=== PATIENT | male | born 1950 | race Caucasian/White ===

== ENCOUNTER 2018-07-06 12:39 | Outpatient (CLI) | payer MEDICARE, OTHER ==
--- NOTE | 2018-07-06 13:48 | ULT ---
CAROTID ULTRASOUND WITH GRAYSCALE AND DOPPLER DUPLEX COLORFLOW IMAGING SPECTRAL ANALYSIS PERFORMED: CLINICAL INDICATION: TIA. FINDINGS: There is mild intimal thickening/plaque formation. PEAK SYSTOLIC VELOCITY (CM/S): Right CCA 128 Left CCA 125 Right ICA 87 Left ICA 84 There is antegrade directional flow within the visualized bilateral vertebral arteries. IMPRESSION: 1. No hemodynamically significant stenosis of the right internal carotid artery. 2. No hemodynamically significant stenosis of the left internal carotid artery. POS: [facility]
== END 2018-07-06 12:40 | disposition home or self-care (01) ==
LOC: BICULT 12:39
PROVIDERS: ATTEND Family Medicine
DX: G45.9 Transient cerebral ischemic attack, unspecified (principal)
CPT/HCPCS: 93880

== ENCOUNTER 2019-05-08 16:28 | Outpatient (CLI) | payer MEDICARE, OTHER ==
--- NOTE | 2019-05-08 17:33 | RAD ---
Radiograph left hip 2 views: HISTORY: 69-year-old male with left hip pain COMPARISON: None FINDINGS: No fracture or dislocation. Severe joint space narrowing at the superior aspect of the hip joint, whe re there is sclerosis and bony hypertrophy. Subcapital osteophytes. IMPRESSION: Moderate to severe osteoarthrosis of the left hip.
--- NOTE | 2019-05-08 17:36 | RAD ---
RADIOGRAPH LUMBAR SPINE 2 VIEWS: DATE: 05/08/2019 HISTORY: 69-year-old male with low back pain and left lumbar radiculopathy COMPARISON: None FINDINGS: L1 has tiny bilateral accessory ribs. Vertebral body heights are maintained. Grade 1 anterolisthesis of L4 on L5 due to bilateral high-grade facet DJD at that level. Grade 1 anterolisthesis of L5 on S1 due to possible pars reticularis defects and or high-grade facet DJD. Severe disc space narrowing L5-S1 without large endplate osteophytes. Mild vacuum disc phenomenon. Mild to moderate disc space narrowing at L3-4. IMPRESSION: 1. Grade 1 spondylolisthesis at L4-5 due to facet osteoarthrosis. 2. Grade 1 spondylolisthesis at L4-5 questionably due to spondylolysis. Noncontrast CT would be usefu l. 3. Degenerative disc disease, especially L5-S1.
== END 2019-05-08 16:29 | disposition home or self-care (01) ==
LOC: SCSRAD 16:28
PROVIDERS: ATTEND Internal Medicine Rheumatology
DX: M25.552 Pain in left hip (principal); M47.816 Spondylosis without myelopathy or radiculopathy, lumbar region; M43.16 Spondylolisthesis, lumbar region; M51.37 Other intervertebral disc degeneration, lumbosacral region; M16.12 Unilateral primary osteoarthritis, left hip
CPT/HCPCS: 72100

== ENCOUNTER 2019-08-23 13:35 | Outpatient (CLI) | payer MEDICARE, OTHER ==
[2019-08-23 14:12] LABS: Estimated GFR-MDRD - POC Greater than 90
--- NOTE | 2019-08-23 15:13 | MRI ---
Exam: Brain MRI with and without contrast HISTORY: Dizziness. Transient ischemic attack. COMPARISON: None FINDINGS: Gradient echo sequence: No hemorrhage Calvarium: Appropriate T1 marrow signal intensity Midline brain parenchyma: Unremarkable Cerebrum:No parenchymal mass, mass effect or midline shift. Brain volume is age appropriate. Del Toro-whi te matter differentiation is preserved. T2 and FLAIR white matter hyperintensities due to chronic small vessel ischemic change. Ventricles: No evidence of hydrocephalus. Sinuses and mastoid air cells: Mild mucosal thickening of the frontal sinuses, sphenoid sinuses and e thmoid air cells. Adequate mastoid air cell aeration. Diffusion: Central arterial flow is maintained. Absent restricted diffusion. Postcontrast images: No pathologic enhancement of the brain parenchyma. IMPRESSION: 1. Absent restricted diffusion. No acute infarct 2. No pathologic enhancement of the brain parenchyma.
== END 2019-08-23 13:36 | disposition home or self-care (01) ==
LOC: SCSMRI 13:35
PROVIDERS: ATTEND Family Medicine
DX: G45.9 Transient cerebral ischemic attack, unspecified (principal); R20.0 Anesthesia of skin; R42 Dizziness and giddiness; R29.810 Facial weakness
CPT/HCPCS: 70553; 82565

== ENCOUNTER 2019-09-21 05:27 | Outpatient (CLI) | payer MEDICARE, OTHER ==
[2019-09-21 16:40] LABS: #Eosinphils 0.1 thou/uL (0.0-0.7); #Lymphocytes 1.6 thou/uL (1.20-3.40); #Monocytes 0.8 thou/uL (0.11-0.59); #Neutrophils 9.3 thou/uL (1.40-6.50); %Basophils 0.2 % (0.0-1.0); %Eosinophils 0.7 % (0.0-10.0); %Lymphocytes 13.8 % (21.0-51.0); %Monocytes 6.9 % (0.0-10.0); %Neutrophils 78.4 % (42.0-75.0); Hemoglobin 14.6 g/dL (14.0-18.0); Mean Corpuscular HGB CONC 33.7 g/dL (32.0-36.0); Mean Corpuscular Hemoglobin 31.8 pg (27.0-31.0); Mean Corpuscular Volume 94.6 fL (78.0-98.0); Mean Platelet Volume 6.9 fL (7.4-10.4); Platelet Count 238 thou/uL (130-400); RBC Distribution Width 12.1 % (11.5-14.5); Red Blood Cell (RBC) Count 4.57 mill/uL (4.70-6.10); White Blood Cell (WBC) Count 11.9 thou/uL (4.8-10.8)
[2019-09-21 16:51] LABS: Anion Gap 12 mmol/L (10-20); BUN (Urea Nitrogen) 18 mg/dL (8.4-25.7); Calc. Creatinine Clearance 0 mL/min (70-130); Calcium 9.3 mg/dL (7.8-10.44); Carbon Dioxide 24 mmol/L (23-31); Chloride 99 mmol/L (98-107); Estimated GFR-MDRD Greater than 90; Glucose 102 mg/dL (83-110); Potassium 4.4 mmol/L (3.5-5.1); Sodium 131 mmol/L (136-145)
[2019-09-21 16:56] LABS: Prothrombin Time 13.2 sec (12.0-14.7)
[2019-09-21 17:01] LABS: Bacteria/HPF None Seen HPF (None Seen); Bilirubin Negative (Negative); Blood, Urine Negative (Negative); Clarity Clear (Clear); Glucose, Urine (Dipstick) Normal (Negative); Ketone, Urine Negative (Negative); Leukocyte Negative Leu/uL (Negative); Nitrite Negative (Negative); Protein, Urine (Dipstick) Negative (Neg-Trace); RBC/HPF 0-3 HPF (0-3); Specific Gravity, Urine 1.017 (1.002-1.036); Squamous Epithelial 0-3 HPF (0-3); Urobilinogen Normal mg/dL (Less than 2); WBC/HPF 0-3 HPF (0-3)
[2019-09-22 12:53] LABS: SARS-CoV-2 MS2 Positive; SARS-CoV-2 N Gene Negative; SARS-CoV-2 S Gene Negative; SARS-CoV-2 orf1ab Negative
== END 2019-09-21 05:28 | disposition home or self-care (01) ==
LOC: LABBT 05:27
PROVIDERS: ATTEND Orthopaedic Surgery
DX: Z01.812 Encounter for preprocedural laboratory examination (principal); Z11.59 Encounter for screening for other viral diseases; M16.12 Unilateral primary osteoarthritis, left hip
CPT/HCPCS: 80048; 81001; 85025; 85610; 87081; U0003; 87635

== ENCOUNTER 2019-09-21 13:15 | Inpatient (IN) | payer MEDICARE, OTHER ==
--- NOTE | 2019-09-21 09:06 | HP ---
PRESENT ILLNESS: The patient is a 69-year-old male with a greater than 1-year history of low back and left hip pain. It has become much worse over the past 6 months. His pain has now become disabling and is interfering with walking, getting dressed, and sleeping. He has had only partial relief with use of Celebrex and lifestyle adjustments. He had a previous injection in his back and hip by Dr. Snyder without relief. PAST MEDICAL HISTORY: The patient is otherwise in good health. He has had some migratory weakness suggestive of a possible TIA. MRI scan of the brain has been negative. Has no major medical problems. CURRENT MEDICATIONS: Include; 1. Pantoprazole. 2. Oxybutynin. 3. Tylenol. 4. Celebrex. ALLERGIES: HE HAS NO KNOWN ALLERGIES. FAMILY HISTORY: Otherwise unremarkable. SOCIAL HISTORY: Otherwise unremarkable. REVIEW OF SYSTEMS: Otherwise unremarkable. PHYSICAL EXAMINATION: GENERAL: This is a healthy male. HEENT: Unremarkable. NECK: Supple. CHEST: Clear. HEART: Regular rate and rhythm. ABDOMEN: Soft, nontender. RECTAL: Deferred. GENITAL: Deferred. BACK: Reveals no point tenderness. EXTREMITIES: Pertinent findings related to his left hip. His leg lengths were equal. There is tenderness in the anterior hip. There is a left antalgic gait. There is decreased range of motion of the left hip and groin pain with internal rotation. NEUROVASCULAR: Intact. Straight leg raising is negative. DIAGNOSTIC STUDIES: X-rays of the left hip reveal severe DJD with no joint space remaining. There are mild degenerative changes of the right hip. X-rays of the lumbar spine reveal mild degenerative changes and grade 1 spondylolisthesis at L5-S1. IMPRESSION: 1. Degenerative arthritis, left hip. 2. Degenerative joint disease of lumbar spine. PLAN: Left total hip replacement. The nature of the surgery, length of recovery, and potential complications such as infection, loss of motion, incomplete relief, leg-length discrepancy, thromboembolic phenomena, neurovascular injury, possible transfusion, and need for revision have been discussed in detail. Job ID: [id number]
[2019-09-25] MEDS ORDERED: Vancomycin 1 GM/200 ML BAG ONE (09:51)
[2019-09-25] MEDS ORDERED: Tranexamic Acid 1,000 MG/10 ML VIAL ONE ×2 (09:51→14:18)
[2019-09-25] MEDS ORDERED: Sodium Chloride 0.9% 100 ML ONE (09:51)
[2019-09-25] MEDS ORDERED: Midazolam HCl 2 mg/2 ml Vial ONE (10:28)
[2019-09-25] MEDS ORDERED: Fentanyl 100 MCG/2 ML VIAL ONE ×2 (10:29→11:39)
[2019-09-25] MEDS ORDERED: Ondansetron PF 4 MG/2 ML Vial IVP PRN ×2 (11:15→15:38)
[2019-09-25] MEDS ORDERED: Zolpidem Tartrate 5 MG TAB PO PRN ×2 (11:15→15:38)
[2019-09-25] MEDS ORDERED: Hydrocerin (Eucerin) Cream 120 gm Jar TOP PRN (11:15)
[2019-09-25] MEDS ORDERED: Promethazine HCl 25 MG/ML VIAL IM PRN (11:15)
[2019-09-25] MEDS ORDERED: diphenhydrAMINE 50 MG/ML VIAL IM PRN (11:15)
[2019-09-25] MEDS ORDERED: traMADol HCl 50 MG TAB PO PRN ×3 (11:15→15:38)
[2019-09-25] MEDS ORDERED: Promethazine HCl 25 MG SUPP PR PRN (11:15)
[2019-09-25] MEDS ORDERED: Bupivacaine 0.25% 10 ML VIAL EPIDURAL PRN (11:15)
[2019-09-25] MEDS ORDERED: Naloxone HCl 0.4 mg/ml Vial IVP PRN (11:15)
[2019-09-25] MEDS ORDERED: HYDROcodone/Acetaminophen 5/325 mg Tablet PO PRN ×2 (11:15)
[2019-09-25] MEDS ORDERED: Naloxone HCl 0.4 mg/ml Vial IV PRN (11:15)
[2019-09-25] MEDS ORDERED: diphenhydrAMINE 50 MG/ML VIAL IVP PRN (11:15)
[2019-09-25] MEDS ORDERED: Ropivacaine 0.2% HCl/PF 20 ML ONE (11:40)
[2019-09-25] MEDS ORDERED: Lidocaine 1.5% w/Epi 1:200K 30 ML VIAL (Epid Use) ONE (11:41)
[2019-09-25] MEDS ORDERED: PROPOFOL 200 MG/20 ML VIAL ONE (11:41)
[2019-09-25] MEDS ORDERED: EPHEDRINE 25 MG/5 ML SYRINGE ONE (11:41)
[2019-09-25] MEDS ORDERED: Dexamethasone 20 MG/5 ML VIAL ONE (11:41)
[2019-09-25] MEDS ORDERED: Glycopyrrolate 0.2 MG/ML 5 ML SYRINGE ONE (11:41)
[2019-09-25] MEDS ORDERED: Rocuronium Bromide 10 MG/ML (10ML VIAL) ONE (11:41)
[2019-09-25] MEDS ORDERED: Ondansetron PF 4 MG/2 ML Vial ONE (11:41)
[2019-09-25] MEDS ORDERED: Tranexamic Acid 1,000 MG in Sodium Chloride 0.9% 100 ML IVPB SCH ×2 (14:30→15:38)
[2019-09-25] MEDS ORDERED: Acetaminophen 325 MG TAB PO PRN (15:38)
[2019-09-25] MEDS ORDERED: diphenhydrAMINE 25 MG CAP PO PRN (15:38)
[2019-09-25] MEDS ORDERED: HYDROcodone/Acetaminophen 10/325 mg Tablet PO PRN ×2 (15:38)
[2019-09-25] MEDS ORDERED: Ketorolac Tromethamine 30 MG/ML VIAL IM SCH (15:38)
[2019-09-25] MEDS ORDERED: Promethazine HCl 25 MG/ML VIAL SLOW IVP PRN (15:38)
[2019-09-25] MEDS ORDERED: Fentanyl 100 MCG/2 ML VIAL SLOW IVP PRN ×2 (15:38)
--- NOTE | 2019-09-25 15:45 | RAD ---
EXAM: 2 views of the left hip HISTORY: Left hip arthroplasty COMPARISON: None FINDINGS: 2 views of the left hip shows the patient is status post left hip arthroplasty without scott hardware lucency or fracture. Air in the soft tissues is from recent surgery.. IMPRESSION: Status post left hip arthroplasty without evidence of complication.
--- NOTE | 2019-09-25 15:49 | OP ---
DATE OF PROCEDURE: 09/25/2019 This is Jacob Chapman PA-C dictating a report for Mario Amanda MD. PREOPERATIVE DIAGNOSIS: End-stage bicompartmental osteoarthritis, left hip. POSTOPERATIVE DIAGNOSIS: End-stage bicompartmental osteoarthritis, left hip. OPERATIVE PROCEDURE: Press-fit left total hip arthroplasty. MERCHANDISE PICKUP/RECEIVING ASSOCIATE: Jacob Chapman PA-C. ANESTHESIA: General via endotracheal tube augmented with indwelling epidural. COMPONENTS USED: [employer] Tritanium II press-fit 58 mm acetabular shell, 10-degree polyethylene fixed bearing insert, Accolade II size 7 press-fit hip stem, and a V40 ceramic femoral head, neutral neck length. FINDINGS: End-stage severe degenerative bicompartmental disease, [id number] arthrosis, periarticular osteophyte formation, large serous effusion, changes consistent with chronic degenerative bicompartmental osteoarthritis. DRAINS: None. SPECIMENS: None. COMPLICATIONS: None. COUNTS: Correct. ESTIMATED BLOOD LOSS: 150 mL. OUTPUT: 200 mL clear yellow urine. INPUT: 900 mL crystalloid. INDICATION FOR SURGERY: Zeb is a 69-year-old male, who has had progressive hip, groin, and thigh pain on the left and problems with standing and walking for the last 5 to 7 years. He has failed conservative management, elected to proceed with total hip arthroplasty as definitive treatment of his pain. PROCEDURE IN DETAIL: After informed consent was obtained in the preoperative holding area, the patient was taken to the operative suite where general anesthesia was induced. The patient was then positioned in the lateral decubitus position. The hip was then prepped and draped in usual sterile fashion. The patient received preoperative antibiotics. Prior to incision, time-out was called and all members of the surgical team agreed upon site, surgeon, and patient. After this, a longitudinal incision was made directly over the trochanter, noted by palpation extending 2 fingerbreadths above and below the trochanter. The deeper subcutaneous layer was undermined with Bovie electrocautery. The iliotibial band was encountered and incised sharply and the plane below this was developed bluntly. A Charnley retractor was placed to hold this opened. The lateral aspect of the trochanter and the abductor muscles were encountered and then reflected anteriorly off the trochanter using Bovie electrocautery. Once this was completed, the anterior capsule was then encountered and identified and copious capsulotomy was carried out, exposing the femoral neck and head. Dislocation maneuver was then performed and an in situ provisional neck cut was then made using the oscillating saw. Attention was then turned to acetabular preparation. Sequential reaming was carried out up to the appropriate diameter and a trial was then malleted into place with good firm resistance and no pullout. The permanent acetabular shell was then malleted squarely into place, as was the appropriate liner. Once completed, the wound was copiously irrigated and attention was then turned to femoral preparation. Flexion and external rotation were performed of the exposed thigh and femoral elevators were then placed at the proximal aspect of the wound. Canal finder was used to establish the length of the canal and sequential reaming was carried out, followed by broaching. Once the appropriate stability was established with the trial broaches with flexion, extension and rotational stability, we did trial with neutral and 2 mm offset incremental necks. Once the appropriate size was decided upon, with good stability noted with flexion, extension, internal and external rotation and shuck being negative, we removed the femoral trial broach and malletted into place the permanent prosthesis with good firm fit, which was also stable to rotation. Again, the hip felt very stable to flexion, extension, internal and external rotation. Leg lengths appeared near anatomic clinically and we were quite happy with prosthesis placement. Copious irrigation was then carried out through the entirety of the wound. Primary closure of the abductors was accomplished with interrupted #2 Vicryl [id number] stitches and the IT band was then closed with interrupted #2 Vicryl, oversewn with a #2 running barbed Quill stitch. Subcutaneous fascia was closed with running barbed Quill stitch and a subcuticular Monocryl barbed Quill stitch was used for skin closure and augmented with skin cement. A sterile dressing was applied. The procedure was terminated without any complication. All counts were correct. The patient was awakened in the operative suite and taken to the recovery room in stable condition. Job ID: [id number]
[2019-09-25] MEDS: Ketorolac Tromethamine 30 MG/ML VIAL IVP SCH ×3 (17:30→23:45)
[2019-09-25] MEDS: Sodium Chloride 0.9% 1,000 ML IV SCH (17:31)
[2019-09-25] MEDS ORDERED: Artificial Tear Sol 15 ML BOT EA EYE PRN (17:33)
[2019-09-25] MEDS ORDERED: CEFAZOLIN 2 GM in Premix Bag 1 BAG IVPB SCH (18:00)
[2019-09-25] MEDS: Aspirin 81 mg Enteric Coated Tablet PO SCH (20:29)
[2019-09-25] MEDS: CEFAZOLIN 2 GM in Premix Bag 1 BAG IVPB SCH (20:32)
[2019-09-25] MEDS: diphenhydrAMINE 25 MG CAP PO PRN (20:47)
[2019-09-25] MEDS ORDERED: Vancomycin 1 GM in Premix Bag 1 BAG IVPB SCH (21:00)
[2019-09-26] MEDS: Sodium Chloride 0.9% 1,000 ML IV SCH ×3 (04:15→23:19)
[2019-09-26] MEDS: Ketorolac Tromethamine 30 MG/ML VIAL IVP SCH ×4 (05:29→23:15)
[2019-09-26] MEDS: CEFAZOLIN 2 GM in Premix Bag 1 BAG IVPB SCH (05:29)
[2019-09-26] MEDS: fentaNYL Citrate/PF 500 MCG, Bupivacaine 10 ML in Sodium Chloride 0.9% 80 ML EPIDURAL SCH ×2 (06:00→20:51)
[2019-09-26] MEDS: diphenhydrAMINE 25 MG CAP PO PRN ×2 (06:05→18:15)
[2019-09-26 06:16] LABS: Hemoglobin 12.1 g/dL (14.0-18.0); Mean Corpuscular Hemoglobin 31.9 pg (27.0-31.0); Mean Corpuscular Volume 93.9 fL (78.0-98.0); Mean Platelet Volume 6.4 fL (7.4-10.4); Platelet Count 205 thou/uL (130-400); RBC Distribution Width 11.8 % (11.5-14.5); Red Blood Cell (RBC) Count 3.78 mill/uL (4.70-6.10)
[2019-09-26] MEDS: Oxybutynin 5 MG TAB PO SCH (08:24)
[2019-09-26] MEDS: Senokot S 8.6-50 MG TAB PO SCH ×2 (08:24→20:56)
[2019-09-26] MEDS: Ferrous Gluconate 324 MG TAB PO SCH ×2 (08:24→20:55)
[2019-09-26] MEDS: Aspirin 81 mg Enteric Coated Tablet PO SCH ×2 (08:24→20:56)
[2019-09-26] MEDS: Multivitamin W/ Minerals 1 TAB PO SCH (08:25)
[2019-09-26 11:29] VITALS: BMI 23.1
[2019-09-27] MEDS: Ketorolac Tromethamine 30 MG/ML VIAL IVP SCH (05:34)
[2019-09-27] MEDS: Multivitamin W/ Minerals 1 TAB PO SCH (08:02)
[2019-09-27] MEDS: Senokot S 8.6-50 MG TAB PO SCH (08:02)
[2019-09-27] MEDS: Aspirin 81 mg Enteric Coated Tablet PO SCH (08:03)
[2019-09-27] MEDS: Ferrous Gluconate 324 MG TAB PO SCH (08:03)
[2019-09-27] MEDS: Oxybutynin 5 MG TAB PO SCH (08:03)
[2019-09-27] MEDS: Sodium Chloride 0.9% 1,000 ML IV SCH (08:03)
[2019-09-27 12:17] VITALS: BP 147/70; TEMP 98.4
== END 2019-09-27 14:15 | disposition home or self-care (01) | DRG 470 ==
LOC: SURG A 09-25 09:26 → SJJU 09-25 15:58
PROVIDERS: ADMIT Orthopaedic Surgery; ATTEND Orthopaedic Surgery
PROC: 0SRB04A Replacement of Left Hip Joint with Ceramic on Polyethylene Synthetic Substitute, Uncemented, Open Approach (ICD-10-PCS; principal; 2019-09-25)
DX: M16.12 Unilateral primary osteoarthritis, left hip (principal); M51.36 Other intervertebral disc degeneration, lumbar region; J30.2 Other seasonal allergic rhinitis; Z79.899 Other long term (current) drug therapy
CPT/HCPCS: 36415; 85027; J0690; J1100; J1885; J2001; J2250; J2405; J2704; J2795; J3010; J3370; J3490; Q0163

== ENCOUNTER 2020-02-12 07:09 | Outpatient (CLI) | payer MEDICARE, OTHER ==
[2020-02-12 16:01] LABS: Anion Gap 13 mmol/L (10-20); BUN (Urea Nitrogen) 11 mg/dL (8.4-25.7); Calc. Creatinine Clearance 0 mL/min (70-130); Calcium 9.3 mg/dL (7.8-10.44); Carbon Dioxide 26 mmol/L (23-31); Chloride 101 mmol/L (98-107); Estimated GFR-MDRD 89; Glucose 100 mg/dL (83-110); Potassium 4.3 mmol/L (3.5-5.1); Sodium 136 mmol/L (136-145)
[2020-02-12 16:31] LABS: #Eosinphils 0.2 10x3/uL (0.0-0.5); #Monocytes 0.6 10x3/uL (0.0-1.1); #Neutrophils 5.6 10x3/uL (1.5-8.4); %Basophils 0.2 % (0.0-2.0); %Eosinophils 2.1 % (0.0-6.0); %Lymphocytes 20.2 % (18.0-47.0); %Monocytes 7.5 % (0.0-10.0); %Neutrophils 69.8 % (40.0-75.0); Hemoglobin 14.9 g/dL (14.0-18.0); Mean Corpuscular HGB CONC 33.3 G/DL (32.0-36.0); Mean Corpuscular Hemoglobin 30.1 PG (27.0-33.0); Mean Corpuscular Volume 90.5 fl (80.0-100.0); Mean Platelet Volume 9.4 fl (7.4-10.4); Platelet Count 208 10x3/uL (130-400); RBC Distribution Width 13.7 % (11.5-14.5); Red Blood Cell (RBC) Count 4.95 10x6/uL (4.40-5.80)
[2020-02-13 03:59] LABS: SARS-CoV-2 MS2 Positive; SARS-CoV-2 N Gene Negative; SARS-CoV-2 S Gene Negative; SARS-CoV-2 by NAA Not Detected (NotDetected); SARS-CoV-2 orf1ab Negative
== END 2020-02-12 07:10 | disposition home or self-care (01) ==
LOC: LABBT 07:09
PROVIDERS: ATTEND Orthopaedic Surgery
DX: Z01.818 Encounter for other preprocedural examination (principal); Z20.828 Contact with and (suspected) exposure to other viral communicable diseases; G56.03 Carpal tunnel syndrome, bilateral upper limbs
CPT/HCPCS: 80048; 85025; U0003; 87635; 93005; 93010

== ENCOUNTER 2020-02-14 07:02 | Day surgery (SDC) | payer MEDICARE, OTHER ==
--- NOTE | 2020-02-13 09:00 | HP ---
HISTORY OF PRESENT ILLNESS: The patient is a 69-year-old male with a greater than 1-year history of pain and numbness in both hands, right greater than left, without specific injury. He has had partial relief from previous injections. He has had no relief with night splinting. Partial relief with ibuprofen. His symptoms are progressing now, interfering with day-to-day activities including sleeping and doing day-to-day activities. PAST HISTORY: The patient had left total hip replacement in September of this year with good results. He is otherwise in good health. He had a questionable episode of a TIA several months ago with an essentially negative workup. CURRENT MEDICATIONS: Include: 1. Aspirin. 2. Prevagen. 3. Multivitamins. ALLERGIES: HE HAS NO KNOWN ALLERGIES. FAMILY HISTORY: Otherwise unremarkable. SOCIAL HISTORY: Otherwise unremarkable. REVIEW OF SYSTEMS: Otherwise unremarkable. 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 PHYSICAL EXAMINATION: GENERAL: A healthy male. HEENT: Unremarkable. NECK: Supple. CHEST: Clear. HEART: Regular rhythm. ABDOMEN: Soft and nontender. RECTAL AND GENITAL: Deferred. EXTREMITIES: Pertinent findings related to both wrists. There is no definite swelling or atrophy. No bony tenderness. There is full range of motion bilaterally without crepitus or instability. There is a positive Tinel sign on the right, negative on the left. Negative Phalen's test bilaterally. There is subjective numbness in median nerve distribution, right greater than left. There is good capillary refill. No palpable distal pulses. DIAGNOSTIC STUDIES: Electrodiagnostic studies revealed bilateral carpal tunnel syndrome. IMPRESSION: 1. Bilateral carpal tunnel syndrome. 2. Status post left total hip replacement. PLAN: Bilateral endoscopic possible open carpal tunnel release. The nature of the surgery, length of recovery, and potential complications such as infection, loss of motion, incomplete relief, nerve injury, recurrence, and need for additional treatment or repeat surgery had been discussed in detail. Job ID: [id number]
[2020-02-13 09:29] VITALS: BMI 23.7
[2020-02-14] MEDS ORDERED: Fentanyl 100 MCG/2 ML VIAL ONE (08:31)
[2020-02-14] MEDS ORDERED: Dexamethasone 20 MG/5 ML VIAL ONE (09:23)
[2020-02-14] MEDS ORDERED: Lidocaine 1% PF 5 ML VIAL ONE (09:23)
[2020-02-14] MEDS ORDERED: ePHEDrine 50 MG/ML VIAL ONE (09:23)
[2020-02-14] MEDS ORDERED: PROPOFOL 200 MG/20 ML VIAL ONE (09:23)
[2020-02-14] MEDS ORDERED: Ondansetron PF 4 MG/2 ML Vial ONE (09:23)
--- NOTE | 2020-02-14 10:48 | OP ---
DATE OF PROCEDURE: 02/14/2020 ANESTHESIA: General. PREOPERATIVE DIAGNOSIS: Bilateral carpal tunnel syndrome. POSTOPERATIVE DIAGNOSIS: Bilateral carpal tunnel syndrome. PROCEDURE PERFORMED: Bilateral endoscopic carpal tunnel release. DESCRIPTION OF PROCEDURE: After satisfactory anesthesia was induced in supine position, the patient was prepped and draped in routine manner. The right wrist was addressed first. The arm was elevated, exsanguinated with Esmarch bandage, and the tourniquet inflated to 250 mmHg. A 2 cm transverse incision was made in the proximal wrist flexion crease, carried down through subcutaneous tissues, and bleeding points were controlled with Bovie cautery. Using sharp and blunt dissection, a distally based flap in deep forearm fascia was developed and retracted distally. Palmaris longus tendon was retracted radially. Proximal edge of the deep forearm fascia was split under direct visualization with small scissors to make sure there was no proximal impingement of the median nerve. Synovium elevator was introduced beneath the transverse carpal ligament. The synovium was cleaned from the undersurface. Carpal tunnel dilators were inserted. The Nanotione endoscopic carpal tunnel system was introduced beneath the transverse carpal ligament in line with the ring finger. The distal edge of the ligament was easily identified and then divided in a distal to proximal direction by pulling the trigger of the assembly, engaging the knife, and withdrawing the scope proximally. This was done in several stages to make sure there was complete division of the transverse carpal ligament, which was documented with video printer. After withdrawing the scope, a carpal tunnel dilator could be inserted into the carpal tunnel and there was markedly improved passage of the instrument and subcutaneous position of the instrument. The scope was reintroduced into the carpal tunnel. There was wide separation of the 2 leaves of the transverse carpal ligament. The tourniquet was released after 6 minutes. There was no excessive bleeding. The scope was withdrawn. The wound was thoroughly irrigated and closed with a running subcuticular 3-0 nylon. Sterile dressing was applied. Attention was then directed to the left wrist and an identical procedure was performed on the left side. The tourniquet time was also 6 minutes. Sterile dressing was applied on the left side and then the patient immobilized in bilateral Velcro wrist splints. He was awakened and taken to recovery room in stable condition. There were no apparent intraoperative complications. The estimated blood loss was negligible. The patient will be discharged home in satisfactory condition, instructed on ice and elevation, and given written wound care instructions. He was given a prescription for tramadol for pain, 15 tablets. He will be rechecked in my office in 10 to 14 days or sooner if there are any problems prior to that time. Job ID: [id number]
== END 2020-02-14 11:40 | disposition home or self-care (01) ==
LOC: SDC 07:02
PROVIDERS: ATTEND Orthopaedic Surgery
PROC: 01N54ZZ Release Median Nerve, Percutaneous Endoscopic Approach (ICD-10-PCS; principal; 2020-02-14)
PROC: 01N54ZZ Release Median Nerve, Percutaneous Endoscopic Approach (ICD-10-PCS; 2020-02-14)
DX: G56.03 Carpal tunnel syndrome, bilateral upper limbs (principal); Z79.82 Long term (current) use of aspirin; Z79.899 Other long term (current) drug therapy; Z91.048 Other nonmedicinal substance allergy status; Z96.642 Presence of left artificial hip joint
CPT/HCPCS: J0690; J1100; J2405; J2704; J3010; J3490